=== PATIENT | male | born 1990 | race American Indian/Alaskan Native ===

== ENCOUNTER 2018-04-25 14:26 | Emergency (ER) | payer SELFPAY ==
--- NOTE | 2018-04-25 16:28 | Emergency Department Report ---
ED Laceration HPI - HPI Chief Complaint: Wound/Laceration Stated Complaint: LACERATION TO HEAD Time Seen by Provider: 04/25/18 16:27 Occurred When: Yesterday Location: Head Severity: mild Tetanus Status: Not up to Date Laceration Symptoms: Yes Pain, No Foreign Body Sensation, No Numbness, No Weakness Other History: This is a 28-year-old male nontoxic in appearance with no signs of distress presents to the ER with a laceration to frontal scalp area. Patient stated that yesterday around 5 PM he hit his head against the corner of cabinet and became dizzy. Patient denies any loss of consciousness. Patient stated headache yesterday but currently denies any headache. She and stated he is not up-to-date with vaccines including tetanus. Patient denies any chest pain, short of breath, fever, chills, nausea, vomiting, headache, stiff neck, numbness or tingling. Patient denies any visual changes. Patient denies any allergies significant past medical history. ED Review of Systems ROS: Stated complaint: LACERATION TO HEAD Other details as noted in HPI Constitutional: denies: chills, fever Eyes: denies: eye pain, eye discharge, vision change ENT: denies: ear pain, throat pain Respiratory: denies: cough, shortness of breath, wheezing Cardiovascular: denies: chest pain, palpitations Endocrine: no symptoms reported Gastrointestinal: denies: abdominal pain, nausea, diarrhea Genitourinary: denies: urgency, dysuria Musculoskeletal: denies: back pain, joint swelling, arthralgia Skin: denies: rash, lesions Neurological: denies: headache, weakness, paresthesias Psychiatric: denies: anxiety, depression Hematological/Lymphatic: denies: easy bleeding, easy bruising ED Past Medical Hx - Past Medical History Hx Asthma: Yes - Surgical History Past Surgical History?: No - Social History Smoking Status: Current Every Day Smoker Substance Use Type: Alcohol - Medications Home Medications: Home Medications Medication Instructions Recorded Confirmed Last Taken Type Ibuprofen [Motrin] 600 mg PO Q8H PRN #30 tablet 04/25/18 Unknown Rx Sulfamethoxazole/Trimethoprim 1 each PO BID #14 tablet 04/25/18 Unknown Rx [Bactrim DS TAB] Laceration Physical Exam - Exam General: Vital signs noted. No distress. Alert and acting appropriately. GENERAL: The patient is a well-developed, well-nourished in no apparent distress. Patient is alert and acting appropriately for age. Alert and oriented 3, no apparent distress, normal gait, atraumatic. HEENT: Head is normocephalic and atraumatic. PERRL, Extraocular muscles are intact. Pupils are equal, round, and reactive to light and accommodation. Nares appeared normal. Mouth is well hydrated and without lesions. Mucous membranes are moist. Posterior pharynx clear of any exudate or lesions. Mouth is well hydrated and without lesions. Tonsils not erythematous or swollen. Uvula midline. Tongue elevated. Mucous members are moist. Posterior pharynx clear, no exudate or lesions. Patent airways. NECK: Supple. No carotid bruits. No lymphadenopathy or thyromegaly.nontender. No meningitic signs are noted. LUNGS: Clear to auscultation. Non labor breathing. No intercostal retractions. Symmetrical with respiration, no wheezing, no rales, or crackles. HEART: Regular rate and rhythm without murmur, rubs or gallops. No reproducible. S1, S2 present, regular rate and rhythm without murmur, no rubs, no gallops. ABDOMEN: Soft, nontender, and nondistended. Positive bowel sounds. No hepatosplenomegaly was noted. No guarding or rebound tenderness, negative epigastric bruit. Negative psoas sign, negative huber sign, negative McBurneys sign EXTREMITIES: Without any cyanosis, clubbing, rash, lesions or edema. Peripheral pulses intact. Capillary refill less than 2 seconds. Full range of motion bilaterally. NEUROLOGIC: Cranial nerves II through XII are grossly intact. Alert and oriented x 3. Normal gait. Symmetrical strength and sensation. Reflexes 2+ throughout. Cerebellar testing normal. GCS score of 15. PSYCHIATRIC: Normal affect with no suicidal or homicidal ideations. Wound Length (cm): 1 Laceration Location: Head Full Body Front + Back: 1 - 1 cm superifical lac Laceration Exam: Yes Normal Distal CMS, No Foreign Body, No Exposed Tendon, Vessel, or Nerve, No Tendon Injury ED Course Vital Signs 04/25/18 14:33 Temperature 98.6 F Pulse Rate 62 Respiratory 20 Rate Blood Pressure 124/67 O2 Sat by Pulse 100 Oximetry - Reevaluation(s) Reevaluation #1: 04/25/18 16:40 Patient is speaking in full sentences with no signs of distress noted. ED Medical Decision Making - Medical Decision Making This is a 28-year-old male that presents with laceration. Patient is stable and was examined by me. The laceration has not been sutured due to laceration occurred greater than 6 hours. I did wash the area with soap and water and a sterile dressing has been applied. Patient is discharged with Bactrim patient received a tetanus booster in the ED. . I ordered a CT of head to rule out any intracranial abnormalities the patient refused. I educated patient of my concerns the patient still refused and signed AMA form. I will still treat patient with antibiotics. I gave patient strict precautions to return to the ER if symptoms of headache recurs or worsens. Patient was instructed to refer to Follow-up with a primary care doctor in 3-5 days or if symptoms worsen and continue return to emergency room as soon as possible. At time of discharge, the patient does not seem toxic or ill in appearance. No acute signs of distress noted. Patient agrees to discharge treatment plan of care. No further questions noted by the patient. Critical care attestation.: If time is entered above; I have spent that time in minutes in the direct care of this critically ill patient, excluding procedure time. ED Disposition Clinical Impression: Laceration Disposition: DC-07 LEFT AGAINST MED ADVICE Is pt being admited?: No Does the pt Need Aspirin: No Condition: Stable Instructions: Acute Headache (ED), Laceration (ED), Acute Wound Care (ED), Ibuprofen (By mouth) Additional Instructions: Follow-up with a primary care doctor in 3-5 days or if symptoms worsen and continue return to emergency room as soon as possible. Prescriptions: Ibuprofen [Motrin] 600 mg PO Q8H PRN #30 tablet PRN Reason: Pain Sulfamethoxazole/Trimethoprim [Bactrim DS TAB] 1 each PO BID #14 tablet Referrals: PRIMARY CAREMD [Primary Care Provider] - 3-5 Days JEFF PATEL MD [Staff Physician] - 3-5 Days [facility] [Outside] - 3-5 Days Forms: AMA Form
[2018-04-25] MEDS ORDERED: MOTRIN PO ONE (16:36)
[2018-04-25] MEDS ORDERED: BOOSTRIX IM ONE (16:36)
[2018-04-25 17:10] VITALS: BP 124/68
== END 2018-04-25 17:00 | disposition left against medical advice (07) ==
LOC: ED 14:26
DX: S01.01XA Laceration without foreign body of scalp, initial encounter (principal); J45.909 Unspecified asthma, uncomplicated; F17.200 Nicotine dependence, unspecified, uncomplicated; W22.09XA Striking against other stationary object, initial encounter; Y93.89 Activity, other specified; Y92.89 Other specified places as the place of occurrence of the external cause; Y99.8 Other external cause status
CPT/HCPCS: 90471; 90715; 99283

== ENCOUNTER 2019-01-21 03:32 | Emergency (ER) | payer OTHER ==
[2019-01-21] MEDS ORDERED: ROCEPHIN IM ONE (09:13)
[2019-01-21] MEDS ORDERED: ZITHROMAX PO ONE (09:13)
[2019-01-21] MEDS ORDERED: XYLOCAINE 1% MPF 5 mL INFILTRATI ONE (09:13)
--- NOTE | 2019-01-21 09:17 | Emergency Department Report ---
ED Male HPI - General Chief complaint: Urogenital-Male Stated complaint: PENILE DISCHARGE Time Seen by Provider: 01/21/19 08:57 Source: patient Mode of arrival: Ambulatory Limitations: No Limitations - History of Present Illness MD Complaint: penile discharge, dysuria -: days(s) (3) Location: penis Radiation: none Quality: burning Consistency: constant - Related Data Sexually active: Yes Previous Rx's Medication Instructions Recorded Last Taken Type Ibuprofen [Motrin] 600 mg PO Q8H PRN #30 tablet 04/25/18 Unknown Rx Sulfamethoxazole/Trimethoprim 1 each PO BID #14 tablet 04/25/18 Unknown Rx [Bactrim DS TAB] Allergies Allergy/AdvReac Type Severity Reaction Status Date / Time No Known Allergies Allergy Verified 01/21/19 08:45 ED Review of Systems ROS: Stated complaint: PENILE DISCHARGE Other details as noted in HPI Comment: All other systems reviewed and negative Constitutional: denies: chills, fever Respiratory: denies: cough, orthopnea, shortness of breath, SOB with exertion, SOB at rest, wheezing Cardiovascular: denies: chest pain, palpitations Gastrointestinal: denies: abdominal pain, nausea, vomiting, diarrhea, constipation, hematemesis, hematochezia Genitourinary: dysuria, discharge Neurological: denies: headache, weakness, numbness, confusion ED Past Medical Hx - Past Medical History Previous Medical History?: Yes Hx Asthma: Yes - Surgical History Past Surgical History?: No - Social History Smoking Status: Current Every Day Smoker Substance Use Type: Alcohol - Medications Home Medications: Home Medications Medication Instructions Recorded Confirmed Last Taken Type Ibuprofen [Motrin] 600 mg PO Q8H PRN #30 tablet 04/25/18 Unknown Rx Sulfamethoxazole/Trimethoprim 1 each PO BID #14 tablet 04/25/18 Unknown Rx [Bactrim DS TAB] ED Physical Exam - General Limitations: No Limitations General appearance: alert, in no apparent distress - ENT ENT exam: Present: normal exam, normal orophraynx, mucous membranes moist - Neck Neck exam: Present: normal inspection, full ROM. Absent: tenderness, meningismus, lymphadenopathy, thyromegaly - Respiratory Respiratory exam: Present: normal lung sounds bilaterally - Cardiovascular Cardiovascular Exam: Present: normal heart sounds - GI/Abdominal GI/Abdominal exam: Present: soft. Absent: distended, tenderness, guarding, rebound, hernia - exam: Present: urethral discharge. Absent: testicular tenderness, scrotal swelling External exam: Absent: erythema, swelling, lesions, lacerations, ecchymosis, bleeding - Extremities Exam Extremities exam: Present: normal inspection, full ROM - Back Exam Back exam: Present: normal inspection, full ROM. Absent: CVA tenderness (R), CVA tenderness (L) - Neurological Exam Neurological exam: Present: alert, oriented X3, CN II-XII intact - Skin Skin exam: Present: warm, intact, normal color ED Course Vital Signs 01/21/19 01/21/19 03:35 08:33 Temperature 98.4 F 97.6 F Pulse Rate 72 51 L Respiratory 16 14 Rate Blood Pressure 131/92 Blood Pressure 122/80 [Left] O2 Sat by Pulse 97 99 Oximetry Critical care attestation.: If time is entered above; I have spent that time in minutes in the direct care of this critically ill patient, excluding procedure time. ED Disposition Clinical Impression: Discharge from penis, STD (male) Disposition: - TO HOME OR SELFCARE Is pt being admited?: No Condition: Stable Instructions: Safe Sex (ED), Sexually Transmitted Diseases (ED) Referrals: PRIMARY CARE, [Primary Care Provider] - 3-5 Days
[2019-01-21 09:24] LABS: Bilirubin,Urine NEG (Negative); Blood,Urine NEG (Negative); Color,Urine Yellow (Yellow); Mucus,Urine FEW /HPF; Protein,Urine <15 mg/dL mg/dL (Negative)
[2019-01-21 09:26] LABS: WBC,Urine > 182.0 /HPF (0.0-6.0)
[2019-01-21 09:33] VITALS: BP 116/83
== END 2019-01-21 09:34 | disposition home or self-care (01) ==
LOC: ED 03:32
DX: A64 Unspecified sexually transmitted disease (principal); F17.200 Nicotine dependence, unspecified, uncomplicated; J45.909 Unspecified asthma, uncomplicated
CPT/HCPCS: 81001; 87086; 87591; 96372; 99283; J0696

== ENCOUNTER 2019-08-09 13:21 | Emergency (ER) | payer SELFPAY ==
[2019-08-09 13:26] VITALS: BP 146/94
--- NOTE | 2019-08-09 13:28 | Emergency Department Report ---
Blank Doc - Documentation Documentation: 29-year-old male that presents with pelvic pain and pain with erection. Denies any testicular pain This initial assessment/diagnostic orders/clinical plan/treatment(s) is/are subject to change based on patient's health status, clinical progression and re- assessment by fellow clinical providers in the ED. Further treatment and workup at subsequent clinical providers discretion. Patient/guardians urged not to elope from the ED as their condition may be serious if not clinically assessed and managed. Initial orders include: 1- Patient sent to [facility] for further evaluation and treatment 2- UA
[2019-08-09 15:46] LABS: Bilirubin,Urine NEG (Negative); Blood,Urine NEG (Negative); Color,Urine Yellow (Yellow); Mucus,Urine FEW /HPF
[2019-08-09 15:49] LABS: WBC,Urine > 182.0 /HPF (0.0-6.0)
[2019-08-09] MEDS ORDERED: AZITHROMYCIN 250 MG TAB PO ONE (16:16)
[2019-08-09] MEDS ORDERED: LIDOCAINE-MPF (1%) 10 MG/1 ML VIAL 5 ML INFILTRATI ONE (16:16)
--- NOTE | 2019-08-09 16:17 | Emergency Department Report ---
ED Dysuria HPI - HPI Chief Complaint: Abdominal Pain Stated Complaint: PAIN IN PELVIS Time Seen by Provider: 08/09/19 13:26 Duration: 2 Days Location of Discomfort: Urethra (dysuria) Severity: Mild Symptoms: Dysuria: Yes, Frequency: No, Suprapubic Pain: Yes, Flank Pain: No, Fever: No, Hematuria: No, Abdominal Pain: No, Previous UTI's: No Other History: Is a 29-year-old male presents to ED complaining of pain with urination and pain with erection. Patient states he had unprotected intercourse 2 weeks ago otherwise no other incident. Patient states that this morning he said a having pain with erection and also have a some dysuria. Patient denies fevers/chills/nausea vomiting/penile discharge/testicular swelling or pain. ED Review of Systems ROS: Stated complaint: PAIN IN PELVIS Other details as noted in HPI Comment: All other systems reviewed and negative ED Past Medical Hx - Past Medical History Hx Asthma: Yes - Surgical History Past Surgical History?: No - Social History Smoking Status: Current Every Day Smoker - Medications Home Medications: Home Medications Medication Instructions Recorded Confirmed Last Taken Type Ibuprofen [Motrin] 600 mg PO Q8H PRN #30 tablet 04/25/18 Unknown Rx Sulfamethoxazole/Trimethoprim 1 each PO BID #14 tablet 04/25/18 Unknown Rx [Bactrim DS TAB] Ciprofloxacin HCl [Ciprofloxacin 500 mg PO Q12H #20 tab 01/21/19 Unknown Rx TAB] Fluconazole [Diflucan TAB] 150 mg PO ONCE #1 tablet 08/09/19 Unknown Rx Dysuria Exam - Exam General: Vital signs noted. No distress. Alert and acting appropriately. Exam: Yes Moist Mucous Membranes, No CVA Tenderness, No Abdominal Tenderness, No Rigidity or Guarding Labs: Lab Results 08/09/19 Range/Units 15:17 Urine Color Yellow (Yellow) Urine Turbidity Cloudy (Clear) Urine pH 6.0 (5.0-7.0) Ur Specific [place] 1.027 (1.003-1.030) Urine Protein 30 mg/dl (Negative) mg/dL Urine Glucose (UA) Neg (Negative) mg/dL Urine Ketones Neg (Negative) mg/dL Urine Blood Neg (Negative) Urine Nitrite Neg (Negative) Urine Bilirubin Neg (Negative) Urine Urobilinogen 4.0 (<2.0) mg/dL Ur Leukocyte Esterase Lg (Negative) Urine WBC (Auto) > 182.0 H (0.0-6.0) /HPF Urine RBC (Auto) 30.0 (0.0-6.0) /HPF U Epithel Cells (Auto) < 1.0 (0-13.0) /HPF Urine Mucus Few /HPF Urine Yeast (Budding) Few /HPF ED Course Vital Signs 08/09/19 13:25 Temperature 99.2 F Pulse Rate 92 H Respiratory 18 Rate Blood Pressure 146/94 O2 Sat by Pulse 97 Oximetry ED Medical Decision Making - Medical Decision Making 29-year-old male presents with urethritis secondary to possible STD exposure. ED course: Analysis and gonorrhea and Chlamydia cultures obtained. Urinalysis positive for leukorrhea, large leukocytes and yeast Patient received 250 mg of Rocephin, azithromycin 1 g Discussed with patient possible STD due to exposure. Discussed with patient findings and treatment Discussed prophylaxis treatment patient is to abstain from sex 7-10 days as treatment. Discussed patient partner knowledge and treatment. Discussed the follow-up with the health department for further STD testing. Patient's alert and oriented times 3. Vital signs are normal patient is in no acute discharge. Patient will be discharged home with instructions. Critical care attestation.: If time is entered above; I have spent that time in minutes in the direct care of this critically ill patient, excluding procedure time. ED Disposition Clinical Impression: Urethritis Disposition: DC-01 TO HOME OR SELFCARE Is pt being admited?: No Does the pt Need Aspirin: No Condition: Stable Instructions: Nonspecific Urethritis in Men (ED), Urinary Tract Infection in Men (ED) Additional Instructions: Make sure to follow up with the primary care physician as discussed. Take all your medications as you've been prescribed. This follow-up with [facility] for further STD testing If you have any worsening symptoms or develop new symptoms please return to ED immediately. Prescriptions: Fluconazole [Diflucan TAB] 150 mg PO ONCE #1 tablet Referrals: [facility] [Outside] - 3-5 Days [facility] [Outside] - 3-5 Days Forms: STI Treatment and Prevention Time of Disposition: 16:20
== END 2019-08-09 17:47 | disposition home or self-care (01) ==
LOC: ED 13:21
DX: N34.2 Other urethritis (principal); F17.200 Nicotine dependence, unspecified, uncomplicated; J45.909 Unspecified asthma, uncomplicated
CPT/HCPCS: 81001; 87086; J0696; 96372